=== PATIENT | female | born 1960 | race Caucasian/White ===

== ENCOUNTER → 2017-04-23 | Outpatient (CLI) | payer OTHER | END | disposition home or self-care (01) | LOC: MA 08:49 | PROC: BH02ZZZ Plain Radiography of Bilateral Breasts (ICD-10-PCS; principal; 2017-04-23) | DX: Z12.39 Encounter for other screening for malignant neoplasm of breast (principal) | CPT/HCPCS: G0202 ==

== ENCOUNTER 2018-03-06 09:00 | Emergency (ER) | payer BC ==
[~2018-03-06] VITALS: Ht 152.4 cm; Wt 98.0 kg
[2018-03-06 09:09] VITALS: Ht 152.4 cm; Wt 98.0 kg
[2018-03-06 11:00] VITALS: BP 147/89
== END 2018-03-06 11:00 | disposition home or self-care (01) ==
LOC: ED 09:00
DX: M77.9 Enthesopathy, unspecified (principal); M72.2 Plantar fascial fibromatosis; I10 Essential (primary) hypertension; E11.9 Type 2 diabetes mellitus without complications; Z90.49 Acquired absence of other specified parts of digestive tract
CPT/HCPCS: Q0092